=== PATIENT | female | born 1935 | race Caucasian/White ===

== ENCOUNTER 2016-11-08 19:49 | Emergency (ER) | payer MEDICARE, OTHER ==
[~2016-11-08] VITALS: Ht 165.1 cm; Wt 49.9 kg
[~2016-11-08 19:49] MED LIST: CHOL2000 PO; CYAN100016 SL; DOCU-27 PO; HYDR-971 PO; LOPE2TAB27 PO; LORA0.5T96 PO; MAGN400O4 PO; MULT-114 PO; ONDA4TAB7 PO; POLY17PO29 PO; QUET25TA5 PO; TRAZ50TA15 PO
--- NOTE | 2016-11-08 20:34 | PHYS DOC ---
Past Medical History Past Medical History: Anxiety, Bipolar, COPD, Dementia, Hypertension Past Surgical History: Other Additional Past Surgical Histo: unknown surgical hx Alcohol Use: None Drug Use: None Adult General Chief Complaint Chief Complaint: MECHANICAL FALL HPI HPI 81-year-old female status post fall tonight with head trauma. The patient seems to have fallen from her bed at a local [facility] facility and injured her forehead. She has a small hematoma there. She has 2 very small lacerations on the forehead as well. No other evidence of injury. Onset today. Location head. Duration constant. No alleviating factors. Review of systems was neg for chest pain shortness of breath neck pain abdominal pain fevers chills vision changes numbness weakness or tingling. All other review of systems is negative unless otherwise noted in history of present illness. Review of Systems Review of Systems SEE ABOVE. Allergies Allergies Allergies Coded Allergies Type Severity Reaction Last Updated Verified No Known Drug Allergies 07/05/14 No Physical Exam Physical Exam Constitutional: Well developed, well nourished, no acute distress, non-toxic appearance. HENT: Normocephalic, hematoma on the right forehead with 2 less than 1 cm lacerations that are very superficial, bilateral external ears normal, oropharynx moist, no oral exudates, nose normal. Eyes: PERRLA, EOMI, conjunctiva normal, no discharge. [] Neck: Normal range of motion, no tenderness, supple, no stridor. Cardiovascular:Heart rate regular rhythm, no murmur [] Lungs & Thorax: Bilateral breath sounds clear to auscultation Abdomen: Bowel sounds normal, soft, no tenderness, no masses, no pulsatile masses. [] Skin: Warm, dry, no erythema, no rash. Back: No tenderness, no CVA tenderness. [] Extremities: No tenderness, no cyanosis, no clubbing, ROM intact, no edema. Neurologic: Alert and oriented X 3, normal motor function, normal sensory function, no focal deficits noted. [] Psychologic: Affect normal, judgement normal, mood normal. Current Patient Data Vital Signs Vital Signs Date Time Temp Pulse Resp B/P (MAP) Pulse Ox O2 Delivery O2 Flow Rate FiO2 11/08/16 22:30 76 105/60 (75) 93 Nasal Cannula 2.0 11/08/16 20:00 98.3 18 98.3 EKG EKG [] Radiology/Procedures Radiology/Procedures [] Course & Med Decision Making Course & Med Decision Making Pertinent Labs and Imaging studies reviewed. (See chart for details) [] 81-year-old female who fell and hit her head. Head CT negative. C-spine negative. Otherwise the patient had 2 very small lacerations were repaired by Dermabond. She was in discharged back to her prison facility for follow up with PCP in 2-3 days. Dragon Disclaimer Dragon Disclaimer This electronic medical record was generated, in whole or in part, using a voice recognition dictation system. Departure Departure Impression: Primary Impression: Head injury Additional Impression: Laceration Disposition: HOME, SELF-CARE Condition: STABLE Referrals: GABI TRIPLETT (PCP) Patient Instructions: Fall Prevention and Home Safety, Head Injury, Adult, Laceration Care, Adult Additional Instructions: Thank you for allowing us to participate in your care today. Followup with your primary care physician in 3 days if your symptoms do not improve. If you do not have a primary care provider you can ask for a list of our primary care providers. Return to the emergency department you have any new or concerning findings. This should be evaluated by the primary care physician and any necessary consulting services for continued management within a few days after discharge. Return to emergency room if you have any new or concerning symptoms including but not limited to fever, chills, nausea, vomiting, intractable pain, any new rashes, chest pain, shortness of air, uncontrolled bleeding, difficulty breathing, and/or vision loss. Laceration Repair Lac Repair Indication: facial laceration x2 Procedure: The patient was placed in the appropriate position and anesthesia above the right eye. . The area was then washed with saline. The laceration was closed with Dermabond. Second laceration was also closed with Dermabond. The wound area was then dressed with nonadherent dressing.. Total repaired wound length: Less than 1 cm. Other Items: none The patient tolerated the procedure well. Complications: none. Problem Qualifiers Primary Impression: Head injury Encounter type: initial encounter Qualified Codes: S09.90XA - Unspecified injury of head, initial encounter KRISTAN MOLINA MD November 08, 2016 20:34
--- NOTE | 2016-11-08 21:05 | RAD ---
CT HEAD AND CERVICAL SPINE WO dated 11/08/2016 7:54 PM History: Fall tonight with laceration above the right eye, history of hypertension and dementia Technique: Noncontrast CT imaging was performed of the head and cervical spine. Multiplanar reconstruction images are submitted. Exposure: One or more of the following individualized dose reduction techniques were utilized for this examination: 1. Automated exposure control 2. Adjustment of the mA and/or kV according to patient size 3. Use of iterative reconstruction technique. 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 There is overlying right frontal scalp hematoma. There is adjacent large area of encephalomalacia or resection cavity in the right frontal lobe as seen previously. No acute intracranial hemorrhage is identified. There are also again areas of encephalomalacia of the left frontal and right temporal lobes with cortical involvement. There is no significant midline shift. There is again moderate to severe third and lateral ventriculomegaly although there is supratentorial atrophy. Mastoid air cells are aerated. Visualized paranasal sinuses are aerated. No new calvarial abnormality is identified. Impression: 1. No acute intracranial hemorrhage is identified. There is right frontal scalp hematoma overlying right frontal craniectomy defect. There are again multifocal areas of encephalomalacia with cortical involvement. There is stable lateral and third ventriculomegaly. Cervical spine CT Comparison: None Findings: No acute cervical spine fracture is identified. Cervical vertebral body stature and AP alignment are within normal limits. Atlanto-axial distance is within normal limits. There is appropriate alignment of lateral masses of C1 relative to C2. Occipital condylar-C1 relationship is maintained. There is more advanced degenerative disc disease C5-C6 and C6-7, to a lesser degree at C4-5. There is spondylosis at the same levels, likely mild spinal stenosis on the order of 8 to 9 mm at C6-7 and to lesser degree at C5-C6. There is multilevel cervical facet degenerative change. There is uncovertebral degenerative change greatest C4-5 to C6-7. There is more significant narrowing of the right C4-5 and bilateral C5-C6 and C6-7 neural foramina. There is some gaseous distention of the visualized proximal esophagus. Impression: 1. No acute cervical spine fracture is identified. 2. There is multilevel cervical degenerative disc disease and spondylosis greatest C4-5 to C6-7, likely mild spinal stenosis greatest at C6-7. There is multilevel cervical facet and uncovertebral degenerative change which results in multilevel cervical neural foramina compromise. Electronically signed by: Mata Eddy MD (11/08/2016 9:02 PM)
[2016-11-08 22:30] VITALS: BP 105/60
== END 2016-11-08 22:44 | disposition home or self-care (01) ==
LOC: ER 20:39
DX: S01.81XA Laceration without foreign body of other part of head, initial encounter (principal); I10 Essential (primary) hypertension; F31.9 Bipolar disorder, unspecified; F03.90 Unspecified dementia, unspecified severity, without behavioral disturbance, psychotic disturbance, mood disturbance, and anxiety; J44.9 Chronic obstructive pulmonary disease, unspecified; W06.XXXA Fall from bed, initial encounter; Y93.89 Activity, other specified; Y99.8 Other external cause status; Y92.89 Other specified places as the place of occurrence of the external cause
CPT/HCPCS: 12001; 70450; 72125; 99284-25

== ENCOUNTER 2017-06-26 17:28 | Emergency (ER) | payer MEDICARE, OTHER | END 2017-06-26 20:20 | disposition home or self-care (01) | LOC: ER 17:28 | DX: S09.90XA Unspecified injury of head, initial encounter (principal); F31.9 Bipolar disorder, unspecified; I10 Essential (primary) hypertension; F03.90 Unspecified dementia, unspecified severity, without behavioral disturbance, psychotic disturbance, mood disturbance, and anxiety; J44.9 Chronic obstructive pulmonary disease, unspecified; W18.39XA Other fall on same level, initial encounter; Y93.89 Activity, other specified; Y99.8 Other external cause status; Y92.89 Other specified places as the place of occurrence of the external cause | CPT/HCPCS: 70450; 72125; 99284-25 ==